=== PATIENT | male | born 1970 | race Caucasian/White ===

== ENCOUNTER 2016-11-10 15:56 | Emergency (ER) | payer OTHER ==
[~2016-11-10] VITALS: Ht 172.7 cm; Wt 86.3 kg
[~2016-11-10 15:56] MED LIST: NORVASC5 M1 PO; ZESTRIL,PRINIVI10 MG PO
[2016-11-10 19:17] VITALS: BP 132/86
== END 2016-11-10 19:28 | disposition home or self-care (01) ==
LOC: EME 15:56 → TRA 15:56
DX: S51.012A Laceration without foreign body of left elbow, initial encounter (principal); S70.02XA Contusion of left hip, initial encounter; M54.2 Cervicalgia; V23.4XXA Motorcycle driver injured in collision with car, pick-up truck or van in traffic accident, initial encounter; T14.8 Other injury of unspecified body region; F17.200 Nicotine dependence, unspecified, uncomplicated; I10 Essential (primary) hypertension
CPT/HCPCS: 72050; 73080; 73502; 99281; 99284